=== PATIENT | male | born 1940 | race Caucasian/White ===

== ENCOUNTER → 2018-10-09 | Outpatient (CLI) | payer OTHER, MEDICARE ==
[~2018-10-09] MED LIST: ADVAIR 250-501 EACH INH; ADVAIR DISKUS; ASPIRIN81 M2 PO; BENICAR40 MG PO; CO Q-10100 MG PO; FISH OIL 1,001000 M2 PO; FLOVENT DISKUS50 MCG IH; GLUCOSAMINE CH1 EACH PO; GLUCOSAMINE HC500 MG PO; INVANZ1 GM IV; MINOCIN100 MG PO; OMEPRAZOLE20 M2 PO; PERCOCET PO; SIMVASTATIN40 MG PO; TYLENOL325 MG PO; UNICOMPLEX M TA1 TA1 PO; VITAMIN D31000 UNI2 PO; VITAMINC500 PO; ZOCOR20 MG PO; ZYRTEC10 MG PO
== END ==
LOC: NUC 14:00
DX: M85.88 Other specified disorders of bone density and structure, other site (principal)